=== PATIENT | female | born 1970 | race Caucasian/White ===

== ENCOUNTER 2024-02-15 20:55 | Emergency (ER) | payer BC, SELFPAY ==
[2024-02-15 20:57] VITALS: BP 212/107
--- NOTE | 2024-02-15 21:18 | ED.GENMED ---
History of Present Illness
General
Chief Complaint: Cardiac Symptoms
Source: patient
Time Seen by Provider: 02/15/24 21:09
History of Present Illness
History of Present Illness:
53-year-old female presents to the emergency room complaining of pain in her chest which radiates down her arms, into her neck and sometimes into her back. She also has a headache which she rates as a 6 out of 10. Patient states she is compliant
with her blood pressure medications which are carvedilol and lisinopril. The symptoms have been present for the past 2 or 3 days. When she has the discomfort it is there for a 'block of time'. It seems to go away when she falls asleep. No
diaphoresis. No significant shortness of breath.
Phy Exam
Physical Exam
Physical Exam:
General: Awake, Alert, Oriented X3. No acute distress.
Vitals: Hypertensive
Head: Atraumatic
Eyes: Pupils equal, EOMI
Throat: Airway intact, no exudates
Neck: Trachea midline
Lungs: Clear and equal b/l
Heart: Regular rate, no murmurs
Abd: Soft, Nontender, No pulsatile mass
Neuro: Nonfocal
Skin: Warm, dry, no rash
Extremities: pulses equal b/l, no edema
Scores
Heart Score for Chest Pain Patients
STEMI patient?: No
History: Moderately Suspicious
ECG: Nonspecific Repolarization
Age: >45 - <65 years
Risk Factors: 1 or 2 Risk Factors
Troponin: </= Normal Limit
Heart Score for Chest Pain Patients: 4
Heart Score Risk: 20.3% MACE over next 6 weeks
Course
Orders/Labs/Results
Orders:
Orders
02/15/24 21:01
ECG [Electrocardiogram (*1)] Urgent
Reason for Study: Chest Pain
EKG- Treatment ONCE
02/15/24 21:18
Cardiac Monitoring- Treatment ONCE
02/15/24 21:21
Basic Metabolic Panel Urgent
Complete Blood Count/With Diff Urgent
HCG, Serum Qualitative Screen Urgent
Comment: ADD ON
Magnesium Urgent
Troponin I Urgent
02/15/24 21:29
Add On- LAB Urgent
Tests Added?: qual hcg
CR Chest - 2 Views Urgent
Comment:
Reason For Exam: chest pain
Abnormal Lab Results
02/15/24
21:21
MCV 77.4 L fL
(81.0-99.0)
Abs Immat Gran (auto) 0.1 H 10^3/uL
(0-0.05)
Creatinine 0.5 L mg/dL
(0.6-1.0)
Glucose 343 H mg/dl
(70-99)
02/15/24 21:21
02/15/24 21:21
Vital Signs
Initial and Last Documented VS:
Initial Vital Signs
Temp Pulse Resp BP Pulse Ox
98.3 F 51 20 212/107 99
02/15/24 20:57 02/15/24 20:57 02/15/24 20:57 02/15/24 20:57 02/15/24 20:57
Last Documented Vital Signs
Temp Pulse Resp BP Pulse Ox
98.3 F 54 20 157/83 98
02/15/24 20:57 02/15/24 21:25 02/15/24 21:25 02/15/24 21:25 02/15/24 21:25
MDM/Problems Addressed
Differential Diagnosis Includes:
ACS, ptx, pneumonia, chest wall pain, uncontolled htn
MDM/Problems Addressed:
Chest pain symptoms. She denies shortness of breath. EKG here is unchanged from previous. She has some T wave inversion in the inferior leads and flattening of the lateral leads however these changes appear fairly chronic. Troponins normal.
Discussed obtaining a second troponin to be completely sure however patient has transportation issues and does not want a wait for the second troponin. Will put her on the chest pain hotline. Started patient to return if she is feeling any worse.
Chronic conditions affecting care: DM and HTN
*Pulse Oximetry
Patient hypoxic: no
*EKG
Interpreted by ED Provider?: Yes
Interpretation: abnormal
Heart Rate: 51
Rate: bradycardiac
Rhythm: sinus
Pavillion: normal axis
Interval: normal interval
QRS Pattern: normal QRS
Ischemia: non-specific ST changes
*Biophysics Professor Interpretation
Rate: normal
Interpretation: normal
Rhythm: sinus
*Critical Care Note
Total Time (30-74mins, 75-104mins- exclusive of procedures): Not Applicable
ED Attending Note
-
Portions of this chart may have been created with voice recognition software.� Occasional wrong word or��sound alike� substitutions may have occurred due to the inherent limitations of voice recognition software.
Discharge Plan
Departure
Patient Disposition: Home (Routine Discharge)
Date of Disposition: 02/15/24
Time of Disposition: 22:20
Patient with high blood pressure during this ER visit?: Yes
Condition: Good
Discharge Problem:
Chest pain
Instructions: Chest Pain DCA Follow Up, BLOOD PRESSURE
Referrals:
UNKNOWN - PT DOES,NOT KNOW [Family Provider] -
Activity Restrictions/Additional Instructions:
You should receive a call from [facility] in the next day or so. Call them if you do not receive that call. Return if you feel your symptoms are worsening.
Interventions
Interventions:
*Risk Screen - Suicide Last Done: 02/15/24 20:57
*General Assessment Last Done: 02/15/24 20:57
*Neglect/Abuse Screening Last Done: 02/15/24 20:57
*ED COVID-19 Vaccine History Last Done: 02/15/24 21:25
ED- Pulmonary Assessment Last Done: 02/15/24 21:32
ED- Cardiac Assessment Last Done: 02/15/24 21:32
Discharge Date and Time
Print Language: BELIZEAN
[2024-02-15 21:23] VITALS: BP 157/83
[2024-02-15 21:25] VITALS: BP 157/83
[2024-02-15 21:33] LABS: % Basophils 0.3 % (0-2); % Eosinophils 2.9 % (0-6); % Immature Granulocytes 0.5 % (0-0.5); % Lymphocytes 32.5 % (20.5-51.1); % Monocytes 6.6 % (1.7-9.3); % Neutrophils 57.2 % (42.2-75.2); Absolute Eosinophils 0.3 10^3/uL (0-0.7); Absolute Immature Granulocytes 0.1 10^3/uL (0-0.05); Absolute Monocytes 0.6 10^3/uL (0.1-0.6); Absolute Neutrophils 5.3 10^3/uL (1.4-6.5); Hematocrit 40.7 % (37.0-47.0); Hemoglobin 14.2 g/dL (12.0-16.0); Mean Corp Hgb Conc. 34.9 g/dL (33.0-37.0); Mean Corpuscular Volume 77.4 fL (81.0-99.0); Mean Platelet Volume 10.3 fL (7.4-10.4); Nucleated Red Blood Cells % 0 %; Platelet Count 226 10^3/uL (130-400); Red Blood Cell Count 5.26 10^6/uL (4.20-5.40); White Blood Cell Count 9.2 10^3/uL (4.8-10.8)
[2024-02-15 21:56] LABS: HCG, Serum Qualitative Screen Negative; Troponin I < 0.012 ng/ml
[2024-02-15 22:01] LABS: Blood Urea Nitrogen 7 mg/dl (7-17); Calcium 9.7 mg/dl (8.4-10.2); Carbon Dioxide 25 mmol/L (22-30); Chloride 102 mmol/L (98-107); Glucose 343 mg/dl (70-99); Magnesium 1.6 mg/dl (1.6-2.3); Potassium 4.2 mmol/L (3.5-5.1); Sodium 137 mmol/L (135-145); eGFR > 60.00
[2024-02-15 22:29] VITALS: BP 181/65
[2024-02-15 22:49] VITALS: BP 156/63
== END 2024-02-15 23:08 | disposition home or self-care (01) ==
LOC: EMR 20:55
PROVIDERS: EMERGENCY PHYSICIAN Emergency Medicine; FAMILY PHYSICIAN Family Medicine
DX: R07.89 Other chest pain (principal); R51.9 Headache, unspecified; E11.9 Type 2 diabetes mellitus without complications; I10 Essential (primary) hypertension
CPT/HCPCS: 99283; 71046; 80048; 83735; 84484; 84703; 85025; 93005

== ENCOUNTER 2024-09-01 20:37 | Emergency (ER) | payer BC, SELFPAY ==
[2024-09-01 20:39] VITALS: BP 171/76
--- NOTE | 2024-09-01 21:25 | ED.MUSCINJ ---
HPI-Injury
General
Chief Complaint: Musculo-Skeletal Complaint
Source: patient
Exam Limitations: none
Time Seen by Provider: 09/01/24 20:48
Nursing documentation reviewed up to this point in time: agreed with
History of Present Illness-Injury
Is this injury a work related problem?: No
Is pt an associate of [facility]?: No
Initial Injury comments:
Patient states she slipped on icy grass surface and then fell down a hill Denies hitting her head. COmplains of pain to medial and lateral left ankle. 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
Past History
Past History
ED Past Medical History: None
Review of Systems
Review of Systems
Allergies reviewed?: Yes
All Other Systems: ROS reviewed and negative except as documented in HPI and ROS
Constitutional: Reports no symptoms
Musculoskeletal: Reports joint pain (Pain to left medial and lateral ankle.)
Skin: Reports no symptoms
Neurological: Reports no symptoms
Psychiatric: Reports no symptoms
Musculoskeletal Injury Exam
Musculoskeletal Injury Exam
Left Ankle:
Pain with Movement?: Moderate
Tender to palpation?: Moderate
Soft tissue swelling?: None
External deformity and angulation?: None
Joint effusion?: None
Contusion?: None
Hematoma-local bleeding into tissue?: None
Strain- Sprain- Tear (Connective tissue injury)?: Moderate
Crepitus with movement?: No
Joint instability?: No
Malalignment/deformity?: No
Range of motion: Limited
Distal skin color and temperature: normal-warm & good color
Capillary Refill: normal
Normal distal neurovascular exam?: Yes
Peripheral Pulses: posterior tibial (left): 3+ and dorsalis pedis (left): 3+
Phy Exam
General Physical Exam
General Presentation: well appearing and no apparent distress
General age: appears stated age
General Skin: warm and dry
General Habitus: normal
General Mental: alert
Musculoskeletal Exam
Musculoskeletal Exam: neuro vasc intact and other (Achilles intact. No tenderness base of 5th proximal tib/fib)
Skin Exam
Skin Exam: normal color, warm/dry and no rash
Psychiatric Exam
Psychiatric Exam: normal mood/affect
Injury Course
Orders/Labs/Results
Orders:
Orders
09/01/24 20:43
Ankle, left 3 view CR [CR Ankle - Left Min 3 Views ] Urgent
Comment:
Reason For Exam: fall
09/01/24 21:21
Ortho Boot Left- Treatment ONCE
Short or tall?: Tall
Hydrocodone 5/APAP 325 [[place] 5/325] 1 tablet PO NOW STA
*Radiology
Radiology exam reviewed: radiology read reviewed
*Pulse Oximetry
Patient hypoxic: no
*Critical Care Note
Total Time (30-74mins, 75-104mins- exclusive of procedures): Not Applicable
ED Attending Note
-
Portions of this chart may have been created with voice recognition software.� Occasional wrong word or��sound alike� substitutions may have occurred due to the inherent limitations of voice recognition software.
Discharge Plan
Departure
Patient Disposition: Home (Routine Discharge)
Date of Disposition: 09/01/24
Time of Disposition: 21:23
Patient with high blood pressure during this ER visit?: No
Condition: Good
Covid-19: Not Applicable
Discharge Problem:
Ankle sprain
Instructions: Sprain (DC), Ibuprofen, Using Cold for Pain
Referrals:
Akhil Reed MD [Active] - (Follow up if your symptoms do not improve over the next week.)
Interventions
Interventions:
*Risk Screen - Suicide Last Done: 09/01/24 20:39
*General Assessment Last Done: 09/01/24 20:39
*Neglect/Abuse Screening Last Done: 09/01/24 20:39
ED- Fall Risk Assessment Last Done: 09/01/24 21:32
*ED COVID-19 Vaccine History Last Done: 09/01/24 20:39
ED-Musculoskeletal Assessment Last Done: 09/01/24 21:31
Discharge Date and Time
Print Language: MAORI
[2024-09-01] MEDS: NORCO 5/325 1 TABLET PO (21:47)
== END 2024-09-01 21:52 | disposition home or self-care (01) ==
LOC: EMR 20:37
PROVIDERS: EMERGENCY PHYSICIAN Emergency Medicine
DX: S93.402A Sprain of unspecified ligament of left ankle, initial encounter (principal); W00.0XXA Fall on same level due to ice and snow, initial encounter; I25.10 Atherosclerotic heart disease of native coronary artery without angina pectoris; E11.9 Type 2 diabetes mellitus without complications; Z79.4 Long term (current) use of insulin; Z86.16 Personal history of COVID-19
CPT/HCPCS: 99283; 29515; 73610

== ENCOUNTER 2024-09-06 21:27 | Emergency (ER) | payer BC, SELFPAY ==
[2024-09-06 21:29] VITALS: BP 185/84
[2024-09-07 01:33] VITALS: BMI 38.4
[2024-09-07 01:44] VITALS: BP 129/65
[2024-09-07 01:45] VITALS: BP 129/65
--- NOTE | 2024-09-07 02:24 | ED.GENMED ---
History of Present Illness
General
Chief Complaint: Musculo-Skeletal Complaint
Source: patient
Exam Limitations: none
Time Seen by Provider: 09/06/24 23:43
Nursing documentation reviewed up to this point in time: agreed with
History of Present Illness
History of Present Illness:
53-year-old female with history as noted presents to the emergency room for bruising in the left foot as well as pain in the ankle. Patient had a slip and fall on the ice last week and inverted her left ankle; she says she heard a 'pop.' She was
not able to get up immediately had to crawl to get help and she says while she was crawling she also injured her wrist on the right. She presented to our ER 09/01/2024�she says that at the time she was not having wrist pain but she was complaining of
ankle pain was told it was likely a sprain; she was put in a walking boot. She says that since then she noticed that she has had some increased swelling and that she is having bruising on the bottom of the left foot which was not there initially.
Furthermore she says she has had some tingling in the toes on the left. She is also starting to develop some right wrist pain. Came to the ER for reassessment.
Past History
Past History
ED Past Medical History: None
Review of Systems
Review of Systems
All Other Systems: ROS reviewed and negative except as documented in HPI and ROS
Musculoskeletal: Reports other (Pain and bruising in the left ankle/foot, wrist pain)
Phy Exam
Physical Exam
Physical Exam:
General: Well appearing and non-toxic
HEENT: protecting airway
Neck: appears supple
CV: No evidence of cyanosis
Resp: No accessory muscle use
Abd: Non-distended
Extremities: Patient has swelling of the left ankle mainly along the lateral malleolus just anterior near the ATFL, bruising in this area; there is some layering of bruising along the lateral margin of the foot and towards the base of the toes but
no tenderness in these areas; she does have marked tenderness of the medial malleolus at the inferior aspect; she has a good strong dorsalis pedis pulse and brisk capillary refill in the left foot; exam of the right wrist she has no snuffbox
tenderness, mild tenderness along the ulna but full active range of motion
Neuro: Alert
Psych: Normal affect
Skin: Intact
Scores
Heart Failure Risk
Heart Failure Risk Score: Not Applicable
Heart Score for Chest Pain Patients
STEMI patient?: Not applicable
Withdrawal Assessment of Alcohol
Withdrawal Assessment Completed?: Not applicable
Course
Orders/Labs/Results
Orders:
Orders
09/07/24 00:43
CR Wrist - Right Min 3 Views Urgent
Comment:
Reason For Exam: wrist pain s/p fall
Vital Signs
Initial and Last Documented VS:
Initial Vital Signs
Temp Pulse Resp BP Pulse Ox
36.8 C 60 20 185/84 100
09/06/24 21:29 09/06/24 21:29 09/06/24 21:29 09/06/24 21:29 09/06/24 21:29
Last Documented Vital Signs
Temp Pulse Resp BP Pulse Ox
36.8 C 60 20 129/65 97
09/06/24 21:29 09/06/24 21:29 09/06/24 21:29 09/07/24 01:45 09/07/24 01:38
MDM/Problems Addressed
Differential Diagnosis Includes:
Ankle pain: Fracture, sprain
Wrist pain: Fracture, sprain
MDM/Problems Addressed:
53-year-old female presents with continued ankle pain, swelling and some new bruising that was not there initially after inversion injury last week. Suspect that she has ankle sprain based on the location of her swelling although she is also
complaining of significant pain along the medial malleolus. Reviewed x-ray�there was a well-corticated fragment in the inferior aspect of the medial malleolus that could be a fracture�she is very tender in this area I suspect it likely is a
fracture. Can manage with walking boot. Bruising appears to be layering/gravity related rather than any acute or worsening pathology. Regarding her wrist�performed x-ray here which was negative for any acute pathology on my review. Suspect
sprain. Will place in a Velcro brace for support. Stable for discharge will have her follow-up with orthopedic as outpatient.
*Radiology
Radiology exam reviewed: preliminary read by ED provider
*Pulse Oximetry
Patient hypoxic: no
*Critical Care Note
Total Time (30-74mins, 75-104mins- exclusive of procedures): Not Applicable
Data Reviewed
Review of Other/Old Records Reveals: Radiology Studies
Source: patient and records
ED Attending Note
-
Portions of this chart may have been created with voice recognition software.� Occasional wrong word or��sound alike� substitutions may have occurred due to the inherent limitations of voice recognition software.
Discharge Plan
Departure
Patient Disposition: Home (Routine Discharge)
Date of Disposition: 09/07/24
Time of Disposition: 01:22
Patient with high blood pressure during this ER visit?: Yes
Discharge Problem:
Hypertension, Right wrist sprain, Ankle fracture
Instructions: Ankle Fracture (DC), Wrist Sprain ED
Referrals:
Hayley Simms DO [Family Provider] -
Suhail Courtney DPM [Active] - Call in 1-3 days for appt
Activity Restrictions/Additional Instructions:
Thank you for visiting the Emergency Department at [facility].
1. Please schedule a follow up appointment as directed. Call first thing tomorrow morning to make an appointment.
2. If indicated, please take your medications as instructed and indicated on discharge paperwork.
3. If any of your symptoms do not improve, or persist, or become more severe within 6-12 hours, please return to the emergency department for further care.
4. Please return to the emergency department if you develop a headache, neck pain/stiffness, fever greater than 100.4F, chest pain, shortness of breath, persistent nausea, vomiting, slurred speech, difficulty walking, numbness/tingling, weakness,
signs of infection or any other symptoms that are worrisome to you.
Please call [phone] if you have any questions.
Interventions
Interventions:
*Risk Screen - Suicide Last Done: 09/06/24 21:29
*General Assessment Last Done: 09/07/24 01:36
*Neglect/Abuse Screening Last Done: 09/06/24 21:29
ED- Fall Risk Assessment Last Done: 09/07/24 01:36
*ED COVID-19 Vaccine History Last Done: 09/07/24 01:36
*Nursing Disposition Last Done: 09/07/24 01:53
ED-Musculoskeletal Assessment Last Done: 09/07/24 01:36
Discharge Date and Time
Discharge Date/Time: 09/07/24 01:54
Print Language: LEBANESE
== END 2024-09-07 01:54 | disposition home or self-care (01) ==
LOC: EMR 21:27
PROVIDERS: EMERGENCY PHYSICIAN Emergency Medicine; FAMILY PHYSICIAN Family Medicine
DX: S82.62XA Displaced fracture of lateral malleolus of left fibula, initial encounter for closed fracture (principal); S63.501A Unspecified sprain of right wrist, initial encounter; S90.32XA Contusion of left foot, initial encounter; S90.02XA Contusion of left ankle, initial encounter; W00.0XXA Fall on same level due to ice and snow, initial encounter; I10 Essential (primary) hypertension; I25.10 Atherosclerotic heart disease of native coronary artery without angina pectoris; E11.9 Type 2 diabetes mellitus without complications; Z79.4 Long term (current) use of insulin; Z86.16 Personal history of COVID-19; Z88.1 Allergy status to other antibiotic agents
CPT/HCPCS: 99283; 29125; 73110

== ENCOUNTER 2025-02-20 21:21 | Emergency (ER) | payer BC, SELFPAY ==
[2025-02-20 21:28] VITALS: BP 144/82
--- NOTE | 2025-02-21 00:08 | ED.GENMED ---
History of Present Illness
General
Chief Complaint: Foreign Body Removal
Source: patient
Exam Limitations: none
Time Seen by Provider: 02/21/25 00:07
Nursing documentation reviewed up to this point in time: agreed with
History of Present Illness
History of Present Illness:
54-year-old female here because she thinks there is a tip of a cotton swab in her right ear.
Past History
Past History
ED Past Medical History: None
Social History
Tobacco: Non-smoker
Personal:
Living: with family
Phy Exam
Physical Exam
Physical Exam:
PHYSICAL EXAMINATION:
General: no apparent distress, not acutely ill
Neuro: alert and oriented.
Psychiatric: well kept. interactive and cooperative
ENT: TMs normal, no foreign body in ear canals
Musculoskeletal: Moves with ease
Skin: Warm, pink.
Course
Vital Signs
Initial and Last Documented VS:
Initial Vital Signs
Temp Pulse Resp BP Pulse Ox
98.2 F 55 16 144/82 98
02/20/25 21:28 02/20/25 21:28 02/20/25 21:28 02/20/25 21:28 02/20/25 21:28
Last Documented Vital Signs
Temp Pulse Resp BP Pulse Ox
98.2 F 55 16 144/82 98
02/20/25 21:28 02/20/25 21:28 02/20/25 21:28 02/20/25 21:28 02/21/25 00:12
MDM/Problems Addressed
MDM/Problems Addressed:
54-year-old female here because she thinks there is a tip of a cotton swab in her right ear.
Right ear exam is normal, no foreign body
*Pulse Oximetry
SaO2: 98
Oxygen Mode of Delivery: Room air
Patient hypoxic: not evaluated
*Critical Care Note
Total Time (30-74mins, 75-104mins- exclusive of procedures): Not Applicable
ED Attending Note
-
Portions of this chart may have been created with voice recognition software.� Occasional wrong word or��sound alike� substitutions may have occurred due to the inherent limitations of voice recognition software.
Discharge Plan
Departure
Patient Disposition: Home (Routine Discharge)
Date of Disposition: 02/21/25
Time of Disposition: 00:09
Patient with high blood pressure during this ER visit?: No
Condition: Good
Discharge Problem:
Possible foreign body right ear canal
Referrals:
Hayley Simms DO [Family Provider, Family Practice]
Activity Restrictions/Additional Instructions:
As we discussed, there is no foreign body in the ear canal.
Do not put Q-tips into your ear
Interventions
Interventions:
*Risk Screen - Suicide Last Done: 02/20/25 21:28
*General Assessment Last Done: 02/21/25 00:10
*Neglect/Abuse Screening Last Done: 02/20/25 21:28
*ED- Fall Risk Assessment Last Done: 02/20/25 21:28
*ED COVID-19 Vaccine History Last Done: 02/21/25 00:10
*Nursing Disposition Last Done: 02/21/25 00:10
Discharge Date and Time
Discharge Date/Time: 02/21/25 00:10
Print Language: MARSHALLESE
== END 2025-02-21 00:10 | disposition home or self-care (01) ==
LOC: EMR 21:21
PROVIDERS: EMERGENCY PHYSICIAN Emergency Medicine; FAMILY PHYSICIAN Family Medicine
DX: Z04.89 Encounter for examination and observation for other specified reasons (principal)
CPT/HCPCS: 99282